=== PATIENT | female | born 1985 | race American Indian/Alaskan Native ===

== ENCOUNTER 2016-08-27 15:23 | Emergency (ER) | payer OTHER ==
[2016-08-27] MEDS ORDERED: NACL 0.9% 1000 ML 1,000 ML IV ONE (16:01)
[2016-08-27 16:19] LABS: Basophils % (Auto) 1.3 % (0.0-1.8); Eosinophils % (Auto) 6.5 % (0.0-4.3); Hematocrit 33.9 % (30.3-42.9); Hemoglobin 10.6 gm/dl (10.1-14.3); Mean Corpuscular HGB Conc 31 % (30-34); Platelet Count 267 K/mm3 (140-440); Red Blood Count 4.88 M/mm3 (3.65-5.03); White Blood Count 9.3 K/mm3 (4.5-11.0)
[2016-08-27 16:29] LABS: Mean Corpuscular Hemoglobin 22 pg (28-32); Mean Corpuscular Volume 70 fl (79-97)
[2016-08-27 16:32] LABS: INR 1.04 (0.87-1.13)
[2016-08-27 16:33] LABS: Partial Thromboplastin Time 30.5 Sec. (24.2-36.6)
[2016-08-27 16:39] LABS: Alanine Aminotransferase 15 units/L (7-56); Albumin 3.8 g/dL (3.9-5); Alkaline Phosphatase 65 units/L (35-129); Anion Gap 16 mmol/L; BUN/Creatinine Ratio 14.28; Blood Urea Nitrogen 10 mg/dL (7-17); Calcium 8.9 mg/dL (8.4-10.2); Carbon Dioxide 26 mmol/L (22-30); Chloride 100.1 mmol/L (98-107); Glucose 92 mg/dL (65-100); Potassium 4.8 mmol/L (3.6-5.0); Sodium 137 mmol/L (137-145); Total Protein 7.5 g/dL (6.3-8.2)
[2016-08-27 17:17] LABS: Bilirubin,Direct < 0.2 mg/dL (0-0.2)
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
[2016-08-27] MEDS ORDERED: NORCO 5/325 ONE (19:34)
[2016-08-27] MEDS ORDERED: NORCO 5/325 PO ONE ×2 (19:36→19:39)
[2016-08-27 19:39] VITALS: BP 164/101
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
== END 2016-08-27 20:00 | disposition home or self-care (01) ==
LOC: ED 15:23
DX: S13.9XXA Sprain of joints and ligaments of unspecified parts of neck, initial encounter (principal); S33.5XXA Sprain of ligaments of lumbar spine, initial encounter; J45.909 Unspecified asthma, uncomplicated; V89.2XXA Person injured in unspecified motor-vehicle accident, traffic, initial encounter; Y93.89 Activity, other specified; Y99.8 Other external cause status; Y92.89 Other specified places as the place of occurrence of the external cause
CPT/HCPCS: 36415; 71010; 72040; 72100; 80048; 80074; 85025; 85610; 85730; 86850; 86900; 86901; 96360; 96361; 99284; J7030

== ENCOUNTER 2017-11-24 16:14 | Emergency (ER) | payer MEDICAID, OTHER ==
--- NOTE | 2017-11-24 18:34 | Emergency Department Report ---
ED Shortness of Breath HPI - General Chief Complaint: Dyspnea/Respdistress Stated Complaint: DIFFICULTY BREATHING Time Seen by Provider: 11/24/17 18:33 Source: patient, EMS Mode of arrival: Stretcher Limitations: No Limitations - History of Present Illness Initial Comments: Patient ran out of her albuterol inhaler and her came to the ED c/o asthma attack with shortness of breath. MD Complaint: shortness of breath, cough, "asthma attack" -: Sudden Severity: moderate Pain Scale: 5 Consistency: constant Improves With: oxygen Known History Of: asthma Context: medication noncompliance Associated Symptoms: cough Treatments Prior to Arrival: none - Related Data Home Oxygen Therapy: No Previous Rx's Medication Instructions Recorded Last Taken Type Cyclobenzaprine HCl [Flexeril 5 MG 5 mg PO TID PRN #14 tab 08/27/16 Unknown Rx TAB] HYDROcodone/APAP 5-325 [Moody 1 each PO Q4HR PRN #14 tablet 08/27/16 Unknown Rx 5/325] ALBUTEROL Inhaler [ProAir HFA 2 puff IH QID PRN #1 inhalation 11/24/17 Unknown Rx Inhaler] Albuterol Sulfate [Albuterol 0.63% 0.63 mg IH Q6H PRN #60 ml 11/24/17 Unknown Rx NEBS] Amoxicillin/Potassium Clav 1 each PO BID #20 tablet 11/24/17 Unknown Rx [Augmentin 875-125 Tablet] predniSONE [Deltasone] 60 mg PO DAILY #12 tablet 11/24/17 Unknown Rx Allergies Allergy/AdvReac Type Severity Reaction Status Date / Time No Known Allergies Allergy Verified 08/12/15 15:21 ED Review of Systems ROS: Stated complaint: DIFFICULTY BREATHING Other details as noted in HPI Comment: All other systems reviewed and negative Constitutional: denies: chills, fever Eyes: denies: eye pain ENT: denies: ear pain, throat pain Respiratory: cough, shortness of breath, SOB at rest Cardiovascular: denies: chest pain, palpitations, dyspnea on exertion Endocrine: no symptoms reported Gastrointestinal: denies: abdominal pain, nausea, vomiting, diarrhea Genitourinary: denies: urgency, dysuria, frequency Musculoskeletal: denies: back pain Skin: denies: rash, lesions Neurological: denies: headache, weakness, numbness Psychiatric: denies: anxiety, depression Hematological/Lymphatic: denies: easy bleeding, easy bruising ED Past Medical Hx - Past Medical History Previous Medical History?: Yes Hx Asthma: Yes - Surgical History Past Surgical History?: Yes Additional Surgical History: x1; oophrectomy x1 - Social History Smoking Status: Never Smoker Substance Use Type: None - Medications Home Medications: Home Medications Medication Instructions Recorded Confirmed Last Taken Type Cyclobenzaprine HCl [Flexeril 5 MG 5 mg PO TID PRN #14 tab 08/27/16 Unknown Rx TAB] HYDROcodone/APAP 5-325 [Moody 1 each PO Q4HR PRN #14 tablet 08/27/16 Unknown Rx 5/325] ALBUTEROL Inhaler [ProAir HFA 2 puff IH QID PRN #1 inhalation 11/24/17 Unknown Rx Inhaler] Albuterol Sulfate [Albuterol 0.63% 0.63 mg IH Q6H PRN #60 ml 11/24/17 Unknown Rx NEBS] Amoxicillin/Potassium Clav 1 each PO BID #20 tablet 11/24/17 Unknown Rx [Augmentin 875-125 Tablet] predniSONE [Deltasone] 60 mg PO DAILY #12 tablet 11/24/17 Unknown Rx ED Physical Exam - General Limitations: No Limitations General appearance: alert, in distress - Head Head exam: Present: atraumatic, normocephalic, normal inspection - Eye Eye exam: Present: normal appearance, PERRL, EOMI Pupils: Present: normal accommodation - ENT ENT exam: Present: normal exam, normal orophraynx, mucous membranes moist - Neck Neck exam: Present: normal inspection, full ROM. Absent: tenderness - Respiratory Respiratory exam: Present: normal lung sounds bilaterally, respiratory distress , wheezes, rales, rhonchi. Absent: stridor - Cardiovascular Cardiovascular Exam: Present: normal rhythm, tachycardia, normal heart sounds - GI/Abdominal GI/Abdominal exam: Present: soft, normal bowel sounds. Absent: distended, tenderness, guarding, rebound - Extremities Exam Extremities exam: Present: normal inspection, full ROM, normal capillary refill. Absent: tenderness - Back Exam Back exam: Present: normal inspection, full ROM. Absent: tenderness, CVA tenderness (R), CVA tenderness (L) - Neurological Exam Neurological exam: Present: alert, oriented X3, CN II-XII intact - Psychiatric Psychiatric exam: Present: normal affect, normal mood - Skin Skin exam: Present: warm, dry, intact, normal color. Absent: rash ED Course Vital Signs 11/24/17 11/24/17 11/24/17 17:52 17:53 17:55 Temperature 98.4 F 98.4 F Pulse Rate 115 H 115 H Respiratory 25 H 25 H Rate Blood Pressure 141/93 Blood Pressure 141/93 141/93 [Left] O2 Sat by Pulse 98 97 97 Oximetry 11/24/17 11/24/17 11/24/17 18:00 18:15 18:30 Temperature Pulse Rate 115 H 113 H 114 H Respiratory 15 12 13 Rate Blood Pressure 138/96 143/76 145/93 Blood Pressure [Left] O2 Sat by Pulse 98 98 98 Oximetry 11/24/17 11/24/17 11/24/17 18:45 19:00 19:15 Temperature Pulse Rate 114 H 109 H 112 H Respiratory 16 16 19 Rate Blood Pressure 138/86 139/74 130/81 Blood Pressure [Left] O2 Sat by Pulse 98 98 98 Oximetry 11/24/17 11/24/17 11/24/17 19:30 20:00 20:39 Temperature Pulse Rate 117 H 121 H Respiratory 31 H 19 Rate Blood Pressure 145/93 137/62 137/62 Blood Pressure [Left] O2 Sat by Pulse 95 99 94 Oximetry 11/24/17 11/24/17 21:00 21:25 Temperature 98.2 F Pulse Rate 112 H 109 H Respiratory 18 20 Rate Blood Pressure 135/89 Blood Pressure 157/76 [Left] O2 Sat by Pulse 93 97 Oximetry - Reevaluation(s) Reevaluation #1: 11/24/17 20:52 Patient says she is feeling a lot better after receiving treatment in the emergency room and she would like to be discharged home. ED Medical Decision Making - Lab Data Result diagrams: 11/24/17 18:22 11/24/17 18:22 - EKG Data -: EKG Interpreted by Me EKG shows normal: sinus rhythm Rate: tachycardia (113) - EKG Data When compared to previous EKG there are: previous EKG unavailable Interpretation: nonspecific ST-T wave kelsea, other (J point elevation in the anterior leads. No STEMI.) - Radiology Data Radiology results: report reviewed, image reviewed - Medical Decision Making Acute asthma exacerbation. Acute bronchitis. Critical care attestation.: If time is entered above; I have spent that time in minutes in the direct care of this critically ill patient, excluding procedure time. ED Disposition Clinical Impression: Bronchitis Asthma exacerbation Qualifiers: Asthma severity: severe Asthma persistence: unspecified Qualified Code(s): J45.901 - Unspecified asthma with (acute) exacerbation Disposition: TO HOME OR SELFCARE Is pt being admited?: No Does the pt Need Aspirin: No Condition: Stable Instructions: Asthma (ED), Chronic Bronchitis (ED) Additional Instructions: Please follow up with your primary doctor or Dr Cortes on Monday morning. Return to the emergency room if her condition worsens. Prescriptions: ALBUTEROL Inhaler [ProAir HFA Inhaler] 2 puff IH QID PRN #1 inhalation PRN Reason: Shortness Of Breath Albuterol Sulfate [Albuterol 0.63% NEBS] 0.63 mg IH Q6H PRN #60 ml PRN Reason: Shortness Of Breath Amoxicillin/Potassium Clav [Augmentin 875-125 Tablet] 1 each PO BID #20 tablet predniSONE [Deltasone] 60 mg PO DAILY #12 tablet Referrals: PRIMARY CARE, [Primary Care Provider] - 3-5 Days Forms: Work/School Release Form(ED) Time of Disposition: 21:01
[2017-11-24] MEDS ORDERED: PROVENTIL IH ONE (18:45)
[2017-11-24] MEDS ORDERED: NACL 0.9% 1000 ML 1,000 ML IV ONE (18:45)
[2017-11-24] MEDS ORDERED: SOLU-Medrol IV ONE (18:46)
[2017-11-24 18:49] LABS: Basophils # (Auto) 0.1 K/mm3 (0.0-0.1); Eosinophils # (Auto) 0.5 K/mm3 (0.0-0.4); Eosinophils % (Auto) 4.8 % (0.0-4.3); Hematocrit 38.8 % (30.3-42.9); Hemoglobin 12.5 gm/dl (10.1-14.3); Lymphocytes # (Auto) 2.3 K/mm3 (1.2-5.4); Lymphocytes % (Auto) 20.3 % (13.4-35.0); Mean Corpuscular HGB Conc 32 % (30-34); Mean Corpuscular Volume 75 fl (79-97); Monocytes # (Auto) 0.6 K/mm3 (0.0-0.8); Monocytes % (Auto) 5.7 % (0.0-7.3); Platelet Count 232 K/mm3 (140-440); Red Cell Distribution Width 17.4 % (13.2-15.2)
[2017-11-24 18:54] LABS: Mean Corpuscular Hemoglobin 24 pg (28-32)
[2017-11-24 19:19] LABS: BUN/Creatinine Ratio 11; Blood Urea Nitrogen 8 mg/dL (7-17); Calcium 9.7 mg/dL (8.4-10.2)
[2017-11-24 19:20] LABS: Hemolysis Index 14
[2017-11-24 19:27] LABS: HCG Qualitative,Urine Negative (Negative)
[2017-11-24 19:38] LABS: Alanine Aminotransferase 13 units/L (7-56); Albumin 4.1 g/dL (3.9-5)
[2017-11-24 19:47] LABS: Bilirubin,Direct < 0.2 mg/dL (0-0.2)
[2017-11-24] MEDS ORDERED: LEVAQUIN PO ONE (20:47)
[2017-11-24] MEDS ORDERED: TYLENOL PO ONE (21:01)
--- NOTE | 2017-11-24 21:12 | XRay Report ---
FINAL REPORT PROCEDURE: XR CHEST ROUTINE 2V TECHNIQUE: PA and lateral chest radiographs were obtained. CPT 02002 HISTORY: Shortness of breath COMPARISON: No prior studies are available for comparison. FINDINGS: Heart: Normal. Mediastinum/Vessels: Normal. Lungs/Pleural space: Normal. Bony thorax: No acute osseous abnormality. Other: IMPRESSION: Normal examination.
[2017-11-24 21:26] VITALS: BP 135/89
== END 2017-11-24 21:28 | disposition home or self-care (01) ==
LOC: ED 16:14
DX: J45.901 Unspecified asthma with (acute) exacerbation (principal); Z90.79 Acquired absence of other genital organ(s)
CPT/HCPCS: 36415; 71046; 80048; 80074; 81025; 82803; 84484; 85025; 93005; 93010; 96374; 99285; J2930; J7030

== ENCOUNTER 2019-03-18 14:58 | Observation (INO) | payer MEDICAID, OTHER ==
--- NOTE | 2019-03-18 15:41 | Emergency Department Report ---
ED Neuro Deficit HPI - General Chief Complaint: Chest Pain Stated Complaint: RT SIDE NUMB/CHEST PAIN Time Seen by Provider: 03/18/19 15:33 Source: patient Mode of arrival: Wheelchair Limitations: No Limitations - History of Present Illness Initial Comments: Patient is 33 years old female with history of asthma. Patient presented to the ER by private vehicle. Patient is complaining of right upper extremity weakness followed by pain, headache and chest pain. Patient stated that symptoms started one hour ago. Patient went to [facility] ER and stated that they could not give a wait time so she decided to come to our hospital. The stroke pr otocol immediately initiated and patient moved to CT scan. Stroke telemetry neurology consulted. -: Sudden, hour(s) (one) Location: speech, right arm, right leg Presenting Symptoms: Present: Weak/Paralyzed One Side, Unable to Speak Clearly History of same: No Place: home Context: sudden onset - Related Data Home Medications: Previous Rx's Medication Instructions Recorded Last Taken Type Cyclobenzaprine HCl [Flexeril 5 MG 5 mg PO TID PRN #14 tab 08/27/16 Unknown Rx TAB] HYDROcodone/APAP 5-325 [[place] 1 each PO Q4HR PRN #14 tablet 08/27/16 Unknown Rx 5/325] ALBUTEROL Inhaler (OR & NICU) 2 puff IH QID PRN #1 inhalation 11/24/17 Unknown Rx [ProAir HFA Inhaler] Albuterol Sulfate [Albuterol 0.63% 0.63 mg IH Q6H PRN #60 ml 11/24/17 Unknown Rx NEBS] Amoxicillin/Potassium Clav 1 each PO BID #20 tablet 11/24/17 Unknown Rx [Augmentin 875-125 Tablet] predniSONE [Deltasone] 60 mg PO DAILY #12 tablet 11/24/17 Unknown Rx Allergies/Adverse Reactions: Allergies Allergy/AdvReac Type Severity Reaction Status Date / Time No Known Allergies Allergy Verified 08/12/15 15:21 ED Review of Systems ROS: Stated complaint: RT SIDE NUMB/CHEST PAIN Other details as noted in HPI Constitutional: denies: chills, fever Respiratory: denies: cough, orthopnea, shortness of breath, SOB with exertion, wheezing Cardiovascular: chest pain Gastrointestinal: denies: abdominal pain, nausea, vomiting Neurological: headache, weakness, numbness. denies: paresthesias, confusion ED Past Medical Hx - Past Medical History Previous Medical History?: Yes Hx Asthma: Yes - Surgical History Past Surgical History?: Yes Additional Surgical History: x1; oophrectomy x1 - Social History Smoking Status: Never Smoker Substance Use Type: None - Medications Home Medications: Home Medications Medication Instructions Recorded Confirmed Last Taken Type Cyclobenzaprine HCl [Flexeril 5 MG 5 mg PO TID PRN #14 tab 08/27/16 Unknown Rx TAB] HYDROcodone/APAP 5-325 [[place] 1 each PO Q4HR PRN #14 tablet 08/27/16 Unknown Rx 5/325] ALBUTEROL Inhaler (OR & NICU) 2 puff IH QID PRN #1 inhalation 11/24/17 Unknown Rx [ProAir HFA Inhaler] Albuterol Sulfate [Albuterol 0.63% 0.63 mg IH Q6H PRN #60 ml 11/24/17 Unknown Rx NEBS] Amoxicillin/Potassium Clav 1 each PO BID #20 tablet 11/24/17 Unknown Rx [Augmentin 875-125 Tablet] predniSONE [Deltasone] 60 mg PO DAILY #12 tablet 11/24/17 Unknown Rx ED Neuro Physical Exam - General Limitations: No Limitations General appearance: alert, in no apparent distress Suspected Stroke: Yes - Head Head exam: Present: atraumatic, normocephalic, normal inspection - Eye Eye exam: Present: normal appearance, PERRL - ENT ENT exam: Present: normal exam, normal orophraynx, mucous membranes moist - Neck Neck exam: Present: normal inspection, full ROM. Absent: tenderness, meningismus, lymphadenopathy, thyromegaly - Respiratory Respiratory exam: Present: normal lung sounds bilaterally - Cardiovascular Cardiovascular Exam: Present: regular rate, normal rhythm, normal heart sounds - GI/Abdominal GI/Abdominal exam: Present: soft, normal bowel sounds. Absent: distended, tenderness, guarding, rebound, rigid, mass, bruit, pulsatile mass, hernia - Extremities Exam Extremities exam: Present: normal inspection, full ROM - Back Exam Back exam: Present: normal inspection, full ROM. Absent: CVA tenderness (R) - Neurological Exam Neurological exam: Present: alert, oriented X3 - NIHSS Assessment Interval: Baseline 1a. Level of Consciousness: alert/keenly responsive 1b. LOC Questions: answers both correctly 1c. LOC Commands: performs tasks correctly 2. Best Gaze: normal 3. Visual: no visual loss 4. Facial Palsy: normal symmetrical movement 5b. Motor Arm Right: no drift 5a. Motor Arm Left: no drift 6a. Motor Leg Left: no drift 6b. Motor Leg Right: some gravity effort 7. Limb Ataxia: absent 8. Sensory: mild/moderate sensory loss 9. Best Language: no aphasia 10. Dysarthria: normal 11. Extinction/Inattention: no abnormality Total Score: 3 Stroke Severity: Minor Stroke - Skin Skin exam: Present: warm, intact, normal color ED Course Vital Signs 03/18/19 03/18/19 03/18/19 15:14 15:30 15:57 Temperature 97.8 F Pulse Rate 91 H 92 H Respiratory 18 26 H 26 H Rate Blood Pressure 156/85 O2 Sat by Pulse 98 98 98 Oximetry 03/18/19 03/18/19 03/18/19 15:58 16:00 16:33 Temperature 97.9 F Pulse Rate 85 103 H Respiratory 13 Rate Blood Pressure 148/89 133/84 O2 Sat by Pulse 97 Oximetry 03/18/19 03/18/19 17:01 17:30 Temperature Pulse Rate 89 84 Respiratory 18 19 Rate Blood Pressure 148/87 157/79 O2 Sat by Pulse 96 97 Oximetry - Lab Data Result diagrams: 03/18/19 15:47 03/18/19 15:47 Lab Results 03/18/19 03/18/19 03/18/19 Range/Units 15:12 15:42 15:47 WBC (4.5-11.0) K/mm3 RBC (3.65-5.03) M/mm3 Hgb (10.1-14.3) gm/dl Hct (30.3-42.9) % MCV (79-97) fl MCH (28-32) pg MCHC (30-34) % RDW (13.2-15.2) % Plt Count (140-440) K/mm3 Lymph % (Auto) (13.4-35.0) % [place] % (Auto) (0.0-7.3) % Eos % (Auto) (0.0-4.3) % Baso % (Auto) (0.0-1.8) % Lymph # (1.2-5.4) K/mm3 [place] # (0.0-0.8) K/mm3 Eos # (0.0-0.4) K/mm3 Baso # (0.0-0.1) K/mm3 Seg Neutrophils % (40.0-70.0) % Seg Neutrophils # (1.8-7.7) K/mm3 PT (12.2-14.9) Sec. INR (0.87-1.13) APTT (24.2-36.6) Sec. Thrombin Time (15.1-19.6) Sec. Sodium (137-145) mmol/L Potassium (3.6-5.0) mmol/L Chloride (98-107) mmol/L Carbon Dioxide (22-30) mmol/L Anion Gap mmol/L BUN (7-17) mg/dL Creatinine (0.7-1.2) mg/dL Estimated GFR ml/min BUN/Creatinine Ratio % Glucose (65-100) mg/dL POC Glucose 109 H 108 H (70-105) Calcium (8.4-10.2) mg/dL Troponin T (0.00-0.029) ng/mL HCG, Qual Negative (Negative) 03/18/19 03/18/19 03/18/19 Range/Units 15:47 15:47 15:47 WBC 9.8 (4.5-11.0) K/mm3 RBC 5.08 H (3.65-5.03) M/mm3 Hgb 11.8 (10.1-14.3) gm/dl Hct 37.4 (30.3-42.9) % MCV 74 L (79-97) fl MCH 23 L (28-32) pg MCHC 32 (30-34) % RDW 17.9 H (13.2-15.2) % Plt Count 273 (140-440) K/mm3 Lymph % (Auto) 39.5 H (13.4-35.0) % [place] % (Auto) 6.6 (0.0-7.3) % Eos % (Auto) 5.8 H (0.0-4.3) % Baso % (Auto) 1.4 (0.0-1.8) % Lymph # 3.9 (1.2-5.4) K/mm3 [place] # 0.6 (0.0-0.8) K/mm3 Eos # 0.6 H (0.0-0.4) K/mm3 Baso # 0.1 (0.0-0.1) K/mm3 Seg Neutrophils % 46.7 (40.0-70.0) % Seg Neutrophils # 4.6 (1.8-7.7) K/mm3 PT 12.9 (12.2-14.9) Sec. INR 0.98 (0.87-1.13) APTT 29.2 (24.2-36.6) Sec. Thrombin Time (15.1-19.6) Sec. Sodium 137 (137-145) mmol/L Potassium 4.0 (3.6-5.0) mmol/L Chloride 102.1 (98-107) mmol/L Carbon Dioxide 24 (22-30) mmol/L Anion Gap 15 mmol/L BUN 10 (7-17) mg/dL Creatinine 0.6 L (0.7-1.2) mg/dL Estimated GFR > 60 ml/min BUN/Creatinine Ratio 17 % Glucose 105 H (65-100) mg/dL POC Glucose (70-105) Calcium 9.2 (8.4-10.2) mg/dL Troponin T < 0.010 (0.00-0.029) ng/mL HCG, Qual (Negative) 03/18/19 Range/Units 15:47 WBC (4.5-11.0) K/mm3 RBC (3.65-5.03) M/mm3 Hgb (10.1-14.3) gm/dl Hct (30.3-42.9) % MCV (79-97) fl MCH (28-32) pg MCHC (30-34) % RDW (13.2-15.2) % Plt Count (140-440) K/mm3 Lymph % (Auto) (13.4-35.0) % [place] % (Auto) (0.0-7.3) % Eos % (Auto) (0.0-4.3) % Baso % (Auto) (0.0-1.8) % Lymph # (1.2-5.4) K/mm3 [place] # (0.0-0.8) K/mm3 Eos # (0.0-0.4) K/mm3 Baso # (0.0-0.1) K/mm3 Seg Neutrophils % (40.0-70.0) % Seg Neutrophils # (1.8-7.7) K/mm3 PT (12.2-14.9) Sec. INR (0.87-1.13) APTT (24.2-36.6) Sec. Thrombin Time 16.2 (15.1-19.6) Sec. Sodium (137-145) mmol/L Potassium (3.6-5.0) mmol/L Chloride (98-107) mmol/L Carbon Dioxide (22-30) mmol/L Anion Gap mmol/L BUN (7-17) mg/dL Creatinine (0.7-1.2) mg/dL Estimated GFR ml/min BUN/Creatinine Ratio % Glucose (65-100) mg/dL POC Glucose (70-105) Calcium (8.4-10.2) mg/dL Troponin T (0.00-0.029) ng/mL HCG, Qual (Negative) - EKG Data -: EKG Interpreted by Md EKG shows normal: sinus rhythm Rate: normal - Radiology Data Radiology results: report reviewed - Medical Decision Making Patient is 33 years old female with history of asthma. Patient presented to the ER by private vehicle. Patient is complaining of right upper extremity weakness followed by pain, headache and chest pain. Patient stated that symptoms started one hour ago. Patient went to [facility] ER and stated that they could not give a wait time so she decided to come to our hospital. The stroke protocol immediately initiated and patient moved to CT scan. Stroke telemetry neurology consulted. Patient examined by Dr. Chaudhary. For further information please refer to Dr. Chaudhary report. Patient declined TPA. Patient's symptoms significantly improved in the emergency room. Patient walked to the bathroom and came back by herself with minimal assistance. CT brain is negative for acute finding. CTA chest showed no evidence of aortic dissection or any other abnormalities. CTA brain and neck is unremarkable. I discussed the patient with Dr. Rabago, he agreed to admit the patient to medical service for further management. Critical Care Time: Yes Critical care time in (mins) excluding proc time.: 30 Critical care attestation.: If time is entered above; I have spent that time in minutes in the direct care of this critically ill patient, excluding procedure time. ED Disposition Clinical Impression: CVA (cerebral vascular accident), Chest pain Disposition: DC-[id number] OP ADMIT IP TO THIS HOSP Is pt being admited?: Yes Condition: Stable Instructions: Chest Pain (ED)
[2019-03-18 15:56] LABS: Basophils # (Auto) 0.1 K/mm3 (0.0-0.1); Basophils % (Auto) 1.4 % (0.0-1.8); Eosinophils # (Auto) 0.6 K/mm3 (0.0-0.4); Eosinophils % (Auto) 5.8 % (0.0-4.3); Hematocrit 37.4 % (30.3-42.9); Hemoglobin 11.8 gm/dl (10.1-14.3); Lymphocytes # (Auto) 3.9 K/mm3 (1.2-5.4); Lymphocytes % (Auto) 39.5 % (13.4-35.0); Mean Corpuscular HGB Conc 32 % (30-34); Mean Corpuscular Volume 74 fl (79-97); Monocytes # (Auto) 0.6 K/mm3 (0.0-0.8); Monocytes % (Auto) 6.6 % (0.0-7.3); Platelet Count 273 K/mm3 (140-440); Red Blood Count 5.08 M/mm3 (3.65-5.03); Red Cell Distribution Width 17.9 % (13.2-15.2)
--- NOTE | 2019-03-18 15:57 | Cat Scan Report ---
CT HEAD WITHOUT CONTRAST INDICATION / CLINICAL INFORMATION: neuro deficits <6hrs or sx present upon awakening. Stroke TECHNIQUE: Axial imaging performed from the skull apex through the skull base without the use of cont rast. Sagittal and coronal reformatted images. All CT scans at this location are performed using CT dose reduction for ALARA by means of automated exposure control. COMPARISON: None available. FINDINGS: CEREBRAL PARENCHYMA: No significant abnormality. No acute territorial infarct. HEMORRHAGE: None. EXTRA-AXIAL SPACES: Normal in size and morphology for the patient's age. VENTRICULAR SYSTEM: Normal in size and morphology for the patient's age. MIDLINE SHIFT OR HERNIATION: None. CEREBELLUM / BRAINSTEM: No significant abnormality. CALVARIUM: No significant abnormality. ORBITS: Normal as visualized. PARANASAL SINUSES / MASTOID AIR CELLS: Normal as visualized. SOFT TISSUES of HEAD: No significant abnormality. ADDITIONAL FINDINGS: None. IMPRESSION: No acute intracranial abnormality. These findings were discussed with Dr. Alfredo in the emergency department at 1551 hours EST Signer Name: Cj Calvillo Jr, MD Signed: 03/18/2019 3:52 PM Workstation Name: [id number]
--- NOTE | 2019-03-18 15:59 | Consultation ---
History of Present Illness History of present illness: [facility] Date of Service: 03/18/2019 15:35:40 Impression: RO Acute Ischemic Stroke chest pain - r/o dissection Comments: 1. Cardioembolic stroke 2. Small vessel disease/lacune 3. Thromboembolic, [id number] mechanism 4. Hypercoagulable state-related infarct 5. Thrombotic mechanism, large artery disease 6. Transient ischemic attack Metrics: Last Known Well: 03/18/2019 12:00:00 [employer] Notification Time: 03/18/2019 15:34:43 Arrival Time: 03/18/2019 14:58:00 Stamp Time: 03/18/2019 15:35:40 Time First Login Attempt: 03/18/2019 15:40:39 Video Start Time: 03/18/2019 15:40:39 Symptoms: chest pain NIHSS Start Assessment Time: 03/18/2019 15:42:28 Patient is not a candidate for tPA. Patient was not deemed candidate for tPA thrombolytics because of IV TPA declined by the patient and her at bedside. Video End Time: 03/18/2019 15:55:03 CT head was reviewed. Advanced imaging may be ordered by ED physician if ok by radiology after CTA chest ER Physician notified of the decision on thrombolytics management on 03/18/2019 15:52:25 Our recommendations are outlined below. Recommendations: Activate Stroke Protocol Admission/Order Set Stroke/Telemetry Floor Neuro Checks Bedside Swallow Eval DVT Prophylaxis IV Fluids, Normal Saline Head of Bed Below 30 Degrees Euglycemia and Avoid Hyperthermia (PRN Acetaminophen) Hold Antithrombotics for Now Lipid Panel to Be Obtained, if Not Done in the Last Three Months Therapies: Physical Therapy, Occupational Therapy, Speech Therapy Assessment When Applicable Dysphaghia Screen: Swallow Evaluation, Bedside NPO Until Swallow Evaluation Disposition: Follow up with Teleneurology Follow up Sign Out: Discussed with Emergency Department Provider History of Present Illness: Patient is a 33 year old Female. Patient was brought by private transportation with symptoms of chest pain 33 y/o woman with h/o HTN who presents to the ED with chest pain and right sided numbness. Emergent telestroke consult requested. CT head reviewed and case discussed with ED staff. at bedside. All questions answered. I discussed the risk, benefits and alternatives to IV TPA and the patient's and patient declined IV TPA. Patient would need CTA of her chest to r/o dissection before IV TPA. All questions answered. Decision regarding IV TPA occurred with ED attending at the bedside. ED attending to send the patient back for CTA of her chest and may add on neuroimaging. CT head was reviewed. Examination: BP(156/85), Blood Glucose(109) 1A: Level of Consciousness - Alert; keenly responsive + 0 1B: Ask Month and Age - Both Questions Right + 0 1C: Blink Eyes & Squeeze Hands - Performs Both Tasks + 0 2: Test Horizontal Extraocular Movements - Normal + 0 3: Test Visual Noriega - No Visual Loss + 0 4: Test Facial Palsy (Use Grimace if Obtunded) - Normal symmetry + 0 5A: Test Left Arm Motor Drift - No Drift for 10 Seconds + 0 5B: Test Right Arm Motor Drift - No Drift for 10 Seconds + 0 6A: Test Left Leg Motor Drift - No Drift for 5 Seconds + 0 6B: Test Right Leg Motor Drift - Some Effort Against [place] + 2 7: Test Limb Ataxia (FNF/Heel-Carpenter) - No Ataxia + 0 8: Test Sensation - Mild-Moderate Loss: Less Sharp/More Dull + 1 9: Test Language/Aphasia - Normal; No aphasia + 0 10: Test Dysarthria - Mild-Moderate Dysarthria: Slurring but can be understood + 1 11: Test Extinction/Inattention - No abnormality + 0 NIHSS Score: 4 Patient was informed the Neurology Consult would happen via TeleHealth consult by way of interactive audio and video telecommunications and consented to receiving care in this manner. Due to the immediate potential for life-threatening deterioration due to underlying acute neurologic illness, I spent 15 minutes providing critical care. This time includes time for face to face visit via telemedicine, review of medical records, imaging studies and discussion of findings with providers, the patient and/or family. Dr Paxton Chaudhary [facility] Case [id number] Medications and Allergies Allergies Allergy/AdvReac Type Severity Reaction Status Date / Time No Known Allergies Allergy Verified 08/12/15 15:21 Home Medications Medication Instructions Recorded Confirmed Last Taken Type Cyclobenzaprine HCl [Flexeril 5 MG 5 mg PO TID PRN #14 tab 08/27/16 Unknown Rx TAB] HYDROcodone/APAP 5-325 [[place] 1 each PO Q4HR PRN #14 tablet 08/27/16 Unknown Rx 5/325] ALBUTEROL Inhaler (OR & NICU) 2 puff IH QID PRN #1 inhalation 11/24/17 Unknown Rx [ProAir HFA Inhaler] Albuterol Sulfate [Albuterol 0.63% 0.63 mg IH Q6H PRN #60 ml 11/24/17 Unknown Rx NEBS] Amoxicillin/Potassium Clav 1 each PO BID #20 tablet 11/24/17 Unknown Rx [Augmentin 875-125 Tablet] predniSONE [Deltasone] 60 mg PO DAILY #12 tablet 11/24/17 Unknown Rx Physical Examination - Vital Signs Vital Signs: Vital Signs Temp Pulse Resp BP Pulse Ox 97.8 F 91 H 18 156/85 98 03/18/19 15:14 03/18/19 15:14 03/18/19 15:14 03/18/19 15:14 03/18/19 15:14 Results - Laboratory Findings CBC and BMP: 03/18/19 15:47 Abnormal Lab Findings: Abnormal Labs 03/18/19 03/18/19 03/18/19 15:12 15:42 15:47 Eos % (Auto) 5.8 H Eos # 0.6 H POC Glucose 109 H 108 H
[2019-03-18 16:10] LABS: BUN/Creatinine Ratio 17; Blood Urea Nitrogen 10 mg/dL (7-17); Calcium 9.2 mg/dL (8.4-10.2); Hemolysis Index 4
[2019-03-18 16:25] LABS: INR 0.98 (0.87-1.13)
[2019-03-18 16:26] LABS: Partial Thromboplastin Time 29.2 Sec. (24.2-36.6)
--- NOTE | 2019-03-18 18:43 | Cat Scan Report ---
CT angio chest INDICATION / CLINICAL INFORMATION: MAIN: CHEST PAIN r/o dissection 70ML OMNI 350. TECHNIQUE: Axial CT images were obtained after injection of Omnipaque 350, 70 cc IV contrast using CTA protocol. 3 plane MIP / 3D reconstructions were produced. All CT scans at this location are performed using CT dose reduction for ALARA by means of automated exposure control. COMPARISON: None available. FINDINGS: Negative for lung mass, infiltrate or pleural fluid. No mediastinal mass or adenopathy. Imaging of th e upper abdomen is unremarkable. Negative for aneurysm, dissection or pulmonary embolus. IMPRESSION: No pulmonary embolus, dissection or pneumonia. Signer Name: Adi Brown MD Signed: 03/18/2019 6:39 PM Workstation Name: [id number]
--- NOTE | 2019-03-18 19:07 | Cat Scan Report ---
CTA head with and without IV contrast. CLINICAL HISTORY: Cerebrovascular accident. Technique: Multiple contiguous postcontrast CT images of the head were obtained at 0.63 mm intervals. 3 plane MIP reconstructions were obtained. Precontrast localizing images were also performed. CT scan s at this location are performed using the CT dose reduction for [place]AP[place]ap[place] by means of automated exposure control. FINDINGS: There is relative small caliber of the intracranial vessels diffusely which appears to be d evelopmental. However, there is no significant focal stenosis involving the distal internal carotid a rteries or vertebrobasilar system by NASCET criteria. The cerebral arteries and proximal branches als o demonstrate appropriate caliber without significant narrowing. There is no clear CTA evidence of intracranial aneurysm. The dural venous sinuses opacify with contra st. IMPRESSION: There is no CTA evidence of significant stenosis involving intracranial vessels. The study was initially incomplete and the technologist was contacted immediately. After an interval, the study was resubmitted and dictated on an emergent basis at 6:01 PM [place] standard time. Signer Name: Reagan Stein MD Signed: 03/18/2019 7:02 PM Workstation Name: [id number]
--- NOTE | 2019-03-18 19:11 | Cat Scan Report ---
CTA neck with and without contrast CLINICAL HISTORY: Cerebrovascular accident. Technique: Multiple contiguous postcontrast axial CT images of the neck were obtained at 0.63 mm inte rvals. 3 plane MIP reconstructions were produced. Precontrast localizing images were also performed. All CT scans at this location are performed using the CT dose reduction for ALARA by means of automat ed exposure control. FINDINGS: No previous exams available for comparison. The beam hardening from the dense venous contra st and body habitus degrade the image quality, particularly in the region of the arch vessels at. How ever, there is no significant stenosis involving the visualized carotid or arteries by NASCET criteri a. The carotid bifurcations are widely patent to. The visualized vessel valadez demonstrate fairly smoo th contour without CT evidence of dissection. The vertebral arteries also appear to demonstrate appropriate caliber without significant focal narro wing. There is mild relative hypoplasia of the right vertebral artery. There is developmental common origin of the brachiocephalic and left common carotid arteries. There is no clear evidence of signifi cant stenosis involving the arch vessels. IMPRESSION: There is no CT evidence of significant stenosis involving the visualized carotid or vertebral arterie s.. The initial study was incomplete and the technologist was contacted immediately. After the study was completed and resubmitted abdomen interval, the exam was dictated on an emergent basis at 6:06 PM [place] tra standard time. Signer Name: Reagan Stein MD Signed: 03/18/2019 7:07 PM Workstation Name: [id number]
[2019-03-18] MEDS ORDERED: ONDANSETRON 4 MG/2 ML INJ IV PRN (22:50)
[2019-03-18] MEDS ORDERED: oxyCODONE /ACETAMINOPHEN 5-325MG TAB PO PRN (22:50)
[2019-03-18] MEDS ORDERED: ACETAMINOPHEN 325 MG TAB PO PRN (22:50)
[2019-03-18] MEDS ORDERED: HYDROmorphone 1 MG/1 ML INJ IV PRN (22:50)
--- NOTE | 2019-03-18 22:50 | History and Physical Report ---
History of Present Illness Date of examination: 03/18/19 Date of admission: 03/18/19 19:37 Chief complaint: Rt sided weakness for few hours-Resolving History of present illness: 33 years old female with history of asthma presented to the ER by private vehicle. Patient is complaining of right upper extremity weakness followed by pain, headache and chest pain. Patient stated that symptoms started one hour ago. Patient went to [facility] ER and stated that they could not give a wait time so she decided to come to our hospital. The stroke protocol immed iately initiated and patient moved to CT scan. Stroke telemetry neurology consulted.Rt sided weakness has resolved by the time of my examination.Patient is morbidly obese. Past Medical History Previous Medical History?: Yes Asthma: Yes Surgical History Past Surgical History?: Yes Additional Surgical History: x1; oophrectomy x1 Social History Smoking Status: Never Smoker Substance Use Type: None Family History Htn Medications Home Medications: Home Medications Medication Instructions Recorded Confirmed Last Taken Type Cyclobenzaprine HCl [Flexeril 5 MG 5 mg PO TID PRN #14 tab 08/27/16 Unknown Rx TAB] HYDROcodone/APAP 5-325 [[place] 1 each PO Q4HR PRN #14 tablet 08/27/16 Unknown Rx 5/325] ALBUTEROL Inhaler (OR & NICU) 2 puff IH QID PRN #1 inhalation 11/24/17 Unknown Rx [ProAir HFA Inhaler] Albuterol Sulfate [Albuterol 0.63% 0.63 mg IH Q6H PRN #60 ml 11/24/17 Unknown Rx NEBS] Amoxicillin/Potassium Clav 1 each PO BID #20 tablet 11/24/17 Unknown Rx [Augmentin 875-125 Tablet] predniSONE [Deltasone] 60 mg PO DAILY #12 tablet 11/24/17 Unknown Rx Review of Systems ROS: Stated complaint: RT SIDE NUMB/CHEST PAIN Other details as noted in HPI Constitutional: denies: chills, fever Respiratory: denies: cough, orthopnea, shortness of breath, SOB with exertion, wheezing Cardiovascular: chest pain Gastrointestinal: denies: abdominal pain, nausea, vomiting Neurological: headache, weakness, numbness. denies: paresthesias, confusion Medications and Allergies Allergies Allergy/AdvReac Type Severity Reaction Status Date / Time No Known Allergies Allergy Verified 08/12/15 15:21 Home Medications Medication Instructions Recorded Confirmed Last Taken Type No Known Home Medications [No 03/18/19 03/18/19 Unknown History Reported Home Medications] Exam - Constitutional Vitals: Temp Pulse Resp BP Pulse Ox 97.9 F 84 16 144/72 96 03/18/19 15:58 03/18/19 20:23 03/18/19 20:23 03/18/19 20:23 03/18/19 20:23 General appearance: Present: no acute distress, well-nourished - EENT Eyes: Present: PERRL ENT: hearing intact, clear oral mucosa - Neck Neck: Present: supple, normal ROM - Respiratory Respiratory effort: normal Respiratory: bilateral: CTA - Cardiovascular Heart rate: 78 Rhythm: regular Heart Sounds: Present: S1 & S2. Absent: rub, click - Extremities Extremities: no ischemia, pulses intact, pulses symmetrical, No edema Peripheral Pulses: within normal limits - Abdominal General gastrointestinal: Present: soft, non-tender, non-distended, normal bowel sounds Female genitourinary: Present: normal - Rectal Rectal Exam: deferred - Integumentary Integumentary: Present: clear, warm, dry - Musculoskeletal Musculoskeletal: strength equal bilaterally (Power normal) - Psychiatric Psychiatric: appropriate mood/affect, intact judgment & insight - Neurologic Neurologic: CNII-XII intact, moves all extremities - Allied Health Allied health notes reviewed: nursing, case management Results - Labs CBC & Chem 7: 03/19/19 05:24 03/19/19 05:24 Labs: Laboratory Last Values WBC 9.8 K/mm3 (4.5-11.0) 03/18/19 15:47 RBC 5.08 M/mm3 (3.65-5.03) H 03/18/19 15:47 Hgb 11.8 gm/dl (10.1-14.3) 03/18/19 15:47 Hct 37.4 % (30.3-42.9) 03/18/19 15:47 MCV 74 fl (79-97) L 03/18/19 15:47 MCH 23 pg (28-32) L 03/18/19 15:47 MCHC 32 % (30-34) 03/18/19 15:47 RDW 17.9 % (13.2-15.2) H 03/18/19 15:47 Plt Count 273 K/mm3 (140-440) 03/18/19 15:47 Lymph % (Auto) 39.5 % (13.4-35.0) H 03/18/19 15:47 [place] % (Auto) 6.6 % (0.0-7.3) 03/18/19 15:47 Eos % (Auto) 5.8 % (0.0-4.3) H 03/18/19 15:47 Baso % (Auto) 1.4 % (0.0-1.8) 03/18/19 15:47 Lymph # 3.9 K/mm3 (1.2-5.4) 03/18/19 15:47 [place] # 0.6 K/mm3 (0.0-0.8) 03/18/19 15:47 Eos # 0.6 K/mm3 (0.0-0.4) H 03/18/19 15:47 Baso # 0.1 K/mm3 (0.0-0.1) 03/18/19 15:47 Seg Neutrophils % 46.7 % (40.0-70.0) 03/18/19 15:47 Seg Neutrophils # 4.6 K/mm3 (1.8-7.7) 03/18/19 15:47 PT 12.9 Sec. (12.2-14.9) 03/18/19 15:47 INR 0.98 (0.87-1.13) 03/18/19 15:47 APTT 29.2 Sec. (24.2-36.6) 03/18/19 15:47 Thrombin Time 16.2 Sec. (15.1-19.6) 03/18/19 15:47 Sodium 137 mmol/L (137-145) 03/18/19 15:47 Potassium 4.0 mmol/L (3.6-5.0) 03/18/19 15:47 Chloride 102.1 mmol/L (98-107) 03/18/19 15:47 Carbon Dioxide 24 mmol/L (22-30) 03/18/19 15:47 Anion Gap 15 mmol/L 03/18/19 15:47 BUN 10 mg/dL (7-17) 03/18/19 15:47 Creatinine 0.6 mg/dL (0.7-1.2) L 03/18/19 15:47 Estimated GFR > 60 ml/min 03/18/19 15:47 BUN/Creatinine Ratio 17 % 03/18/19 15:47 Glucose 105 mg/dL (65-100) H 03/18/19 15:47 POC Glucose 108 (70-105) H 03/18/19 15:42 Calcium 9.2 mg/dL (8.4-10.2) 03/18/19 15:47 Troponin T < 0.010 ng/mL (0.00-0.029) 03/18/19 15:47 HCG, Qual Negative (Negative) 03/18/19 15:47 Short CBC 03/18/19 03/19/19 Range/Units 15:47 05:24 WBC 9.8 7.1 (4.5-11.0) K/mm3 Hgb 11.8 11.2 (10.1-14.3) gm/dl Hct 37.4 35.2 (30.3-42.9) % Plt Count 273 240 (140-440) K/mm3 BMP 03/18/19 03/19/19 15:47 05:24 Sodium 137 137 Potassium 4.0 4.3 Chloride 102.1 99.1 Carbon Dioxide 24 25 BUN 10 10 Creatinine 0.6 L 0.6 L Glucose 105 H 114 H Calcium 9.2 8.9 Cardiac Enzymes 03/18/19 Range/Units 15:47 Troponin T < 0.010 (0.00-0.029) ng/mL Liver Function 03/19/19 Range/Units 05:24 Total Bilirubin 0.20 (0.1-1.2) mg/dL AST 17 (5-40) units/L ALT < 5 L (7-56) units/L Alkaline Phosphatase 75 (35-129) units/L Albumin 3.5 L (3.9-5) g/dL - Imaging and Cardiology EKG: report reviewed CT Scan - head: report reviewed (NAF) Assessment and Plan Advance Directives: Yes (Full code) VTE prophylaxis?: Chemical Plan of care discussed with patient/family: Yes - Patient Problems (1) TIA (transient ischemic attack) Current Visit: Yes Status: Acute Plan to address problem: TIA w/u MR brain and CDS pending Had Neck Head and Chest CTA which are normal Neuro consult requested (2) Asthma Current Visit: Yes Status: Inactive Qualifiers: Asthma severity: mild Plan to address problem: Bronchodilators prn (3) Morbid obesity Current Visit: Yes Status: Chronic Plan to address problem: Counselled BMI 49.5 Needs weight loss and Bariatric surgery appointment as outpatient (4) DVT prophylaxis Current Visit: Yes Status: Acute Plan to address problem: On Heparin and GI prophlaxis
[2019-03-18] MEDS ORDERED: SODIUM CHLORIDE 0.9% 1000 ML 1,000 ML IV SCH (23:00)
[2019-03-19 04:46] VITALS: BP 143/84
[2019-03-19 06:18] LABS: Basophils % (Auto) 0.6 % (0.0-1.8); Eosinophils # (Auto) 0.5 K/mm3 (0.0-0.4); Eosinophils % (Auto) 7.2 % (0.0-4.3); Hematocrit 35.2 % (30.3-42.9); Hemoglobin 11.2 gm/dl (10.1-14.3); Lymphocytes # (Auto) 3.2 K/mm3 (1.2-5.4); Lymphocytes % (Auto) 44.8 % (13.4-35.0); Mean Corpuscular HGB Conc 32 % (30-34); Mean Corpuscular Volume 73 fl (79-97); Monocytes # (Auto) 0.5 K/mm3 (0.0-0.8); Monocytes % (Auto) 7.3 % (0.0-7.3); Platelet Count 240 K/mm3 (140-440); Red Blood Count 4.86 M/mm3 (3.65-5.03); Red Cell Distribution Width 18.2 % (13.2-15.2)
[2019-03-19 06:33] LABS: Albumin 3.5 g/dL (3.9-5); BUN/Creatinine Ratio 17; Blood Urea Nitrogen 10 mg/dL (7-17); Calcium 8.9 mg/dL (8.4-10.2); Chol/HDL Ratio 3.86 %; HDL Cholesterol 37 mg/dL (40-59); Hemolysis Index 1; LDL Cholesterol,Direct 82 mg/dL (50-130)
[2019-03-19 06:35] LABS: Alanine Aminotransferase < 5 units/L (7-56)
[2019-03-19] MEDS ORDERED: ACETAMINOPHEN 325 MG TAB PO PRN (07:15)
[2019-03-19] MEDS ORDERED: ONDANSETRON 4 MG/2 ML INJ IV PRN (08:00)
[2019-03-19 08:11] LABS: % Iron Saturation 8.11 %
[2019-03-19] MEDS ORDERED: HEPARIN 5,000 UNIT/1 ML VIAL SUB-Q SCH (10:00)
--- NOTE | 2019-03-19 13:13 | Magnetic Resonance Report ---
MRI BRAIN WITHOUT CONTRAST INDICATION / CLINICAL INFORMATION: stroke. Patient symptoms include headaches and right upper extremity weakness. TECHNIQUE: Multiplanar, multisequence MR images of the brain were obtained. COMPARISON: Head CT on 03/18/2019. No prior brain MRI. FINDINGS: BRAIN / INTRACRANIAL CONTENTS: No acute ischemia, acute hemorrhage, mass effect, midline shift, or hy drocephalus. No chronic infarct or significant atrophy. No significant demyelinating changes. There is mild hyperostosis frontalis. CRANIOCERVICAL JUNCTION: No significant abnormality. VASCULAR FLOW-VOIDS: No significant abnormality. ORBITS: No significant abnormality of visualized orbits. SINUSES / MASTOIDS: No significant abnormality of visualized sinuses and mastoid air cells. ADDITIONAL FINDINGS: None. IMPRESSION: 1. No evidence of acute infarct or other acute intracranial abnormality. No intracranial findings to explain right upper extremity weakness. Signer Name: Mario Rich MD Signed: 03/19/2019 1:09 PM Workstation Name: [id number]
--- NOTE | 2019-03-19 13:28 | Vascular Lab Report ---
BILATERAL CAROTID DOPPLER ULTRASOUND INDICATION : stroke, right-sided weakness TECHNIQUE: Grayscale and color Doppler imaging performed through the neck. COMPARISON: CTA neck performed yesterday FINDINGS: Right: There is no significant atherosclerotic disease. Peak systolic velocity in the CCA is 114 cm /s with end-diastolic velocity of 7 cm/s. Peak systolic velocity in the proximal ICA is 108 cm/s with end-diastolic velocity of 39 cm/s. ICA to CCA ratio is less than 2. There is antegrade flow in the ECA and the vertebral artery. Left: There is no significant atherosclerotic disease. Peak systolic velocity in the CCA is 102 cm/s with end-diastolic velocity of 13 cm/s. Peak systolic velocity in the proximal ICA is 118 cm/s with e nd-diastolic velocity of 58 cm/s. ICA to CCA ratio is less than 2. There is antegrade flow in the EC A and the vertebral artery. IMPRESSION: No hemodynamically significant stenosis by NASCET criteria. There is less than 50% lumina l narrowing throughout both carotid systems. Signer Name: Cj Calvillo Jr, MD Signed: 03/19/2019 1:23 PM Workstation Name: [id number]
--- NOTE | 2019-03-19 15:35 | Discharge Summary ---
Providers - Providers Date of Admission: 03/18/19 19:37 Date of discharge: 03/19/19 Attending physician: YARELI GONZALEZ 03/18/19 22:50 Consult to Physician [CONS] Routine Comment: Consulting Provider: LYNN BENAVIDES Physician Instructions: Reason For Exam: TIA 03/18/19 23:00 Occupational Therapy Evaluate and Treat [CONS] Routine Comment: Reason For Exam: Neuro deficits Physical Therapy Evaluation and Treat [CONS] Routine Comment: Reason For Exam: Neuro deficits 03/19/19 14:57 Consult to Dietitian/Nutrition [CONS] Routine Physician Instructions: Reason For Exam: New onset Diabees Reason for Consult: Nutrition Recommendations Reason for Consult: Diet education Primary care physician: WHITLEY ARTIS MD Hospitalization Condition: Stable Hospital course: Discharge diagnosis; / Right upper extremity pain ans weakness - ruled out TIA (transient ischemic attack) - likley from cervical rediculopathy - all stroke workup was negative /Atypical Chest pain, musculoskeletal, resolved / Asthma Bronchodilators prn / Morbid obesity Counselled BMI 49.5, Needs weight loss and Bariatric surgery appointment as outpatient /Prediabetic, a1c 6.3 - recommended diet and exercise regimen Disposition: DC-01 TO HOME OR SELFCARE Time spent for discharge: 34 minutes Core Measure Documentation - Palliative Care Palliative Care/ Comfort Measures: Not Applicable - Core Measures Any of the following diagnoses?: none Exam - Constitutional Vitals: Temp Pulse Resp BP Pulse Ox 98.4 F 93 H 22 143/84 98 03/19/19 01:24 03/19/19 08:50 03/19/19 08:39 03/19/19 04:30 03/19/19 08:39 General appearance: Present: no acute distress, well-nourished - EENT Eyes: Present: PERRL ENT: hearing intact, clear oral mucosa - Neck Neck: Present: supple, normal ROM - Respiratory Respiratory effort: normal Respiratory: bilateral: CTA - Cardiovascular Heart Sounds: Present: S1 & S2. Absent: rub, click - Extremities Extremities: pulses symmetrical, No edema Peripheral Pulses: within normal limits - Abdominal General gastrointestinal: Present: soft, non-tender, non-distended, normal bowel sounds - Integumentary Integumentary: Present: clear, warm, dry - Musculoskeletal Musculoskeletal: gait normal, strength equal bilaterally - Psychiatric Psychiatric: appropriate mood/affect, intact judgment & insight - Neurologic Neurologic: CNII-XII intact, moves all extremities Plan Activity: advance as tolerated Weight Bearing Status: Weight Bear as Tolerated Diet: low fat, low salt, diabetic Additional Instructions: f/u with neurology outpt Follow up with: PRIMARY CARE, [Referring] - 3-5 Days ELDA YU MD [Staff Physician] - 7 Days Forms: Discharge Signature Page, Work/School Release Form Prescriptions: Cyclobenzaprine HCl [Flexeril 5 MG TAB] 5 mg PO TID #15 tab
--- NOTE | 2019-03-19 15:36 | Progress Note ---
Assessment and Plan This is a 33 YO F with acute radiating pain down the right arm? cervical radiculpathy Can do MRI cervical spine if not done- pt thinks she had it already but I do not see it Can treat conservatively with rest, steroids, muscle relaxers and non narcotic analgesics at discharge Follow up with neurology outpatient. Subjective Date of service: 03/19/19 Interval history: No new complaints. Feels much better. Objective - Vital Sign Vital Signs - 12hr 03/19/19 03/19/19 03/19/19 03:38 03:45 04:00 Pulse Rate Pulse Rate [ Apical] Respiratory Rate Blood Pressure 165/86 167/94 165/92 O2 Sat by Pulse Oximetry 03/19/19 03/19/19 03/19/19 04:15 04:30 06:37 Pulse Rate Pulse Rate [ Apical] Respiratory 18 Rate Blood Pressure 155/88 143/84 O2 Sat by Pulse Oximetry 03/19/19 03/19/19 03/19/19 07:37 08:39 08:50 Pulse Rate 93 H Pulse Rate [ 88 Apical] Respiratory 18 22 Rate Blood Pressure O2 Sat by Pulse 98 Oximetry - General Apperance Constitutional: comfortable - EENT EENT: mucous membranes moist - Respiratory Respiratory: lungs clear, normal breath sounds - Cardiovascular Cardiovascular: regular rate - Gastrointestinal Gastrointestinal: normoactive bowel sounds - Neurologic Cranial nerve examination: PERRL, EOMI, V1/V2/V3 grossly intact, face symmetric, tongue midline Motor examination - right side: 5/5: biceps, triceps, wrist flexion, wrist extension, biological sciences professor, hip flexors, knee extensors, dorsiflexion, toe extension (EHL), plantarflexion Motor examination - left side: 5/5: biceps, triceps, wrist flexion, wrist extension, biological sciences professor, hip flexors, knee extensors, dorsiflexion, toe extension (EHL), plantarflexion - Laboratory Findings CBC and BMP: 03/19/19 05:24 03/19/19 05:24 Abnormal Lab Findings: Abnormal Labs 03/18/19 03/18/19 03/18/19 15:12 15:42 15:47 RBC 5.08 H MCV 74 L MCH 23 L RDW 17.9 H Lymph % (Auto) 39.5 H Eos % (Auto) 5.8 H Eos # 0.6 H Creatinine Glucose POC Glucose 109 H 108 H Hemoglobin A1c Iron ALT Albumin HDL Cholesterol 03/18/19 03/18/19 03/19/19 15:47 15:47 05:24 RBC MCV 73 L MCH 23 L RDW 18.2 H Lymph % (Auto) 44.8 H Eos % (Auto) 7.2 H Eos # 0.5 H Creatinine 0.6 L Glucose 105 H POC Glucose Hemoglobin A1c 6.3 H Iron ALT Albumin HDL Cholesterol 03/19/19 03/19/19 05:24 05:42 RBC MCV MCH RDW Lymph % (Auto) Eos % (Auto) Eos # Creatinine 0.6 L Glucose 114 H POC Glucose Hemoglobin A1c Iron 30 L ALT < 5 L Albumin 3.5 L HDL Cholesterol 37 L - Diagnostic Findings Additional findings: MRI Brain nothing acute
[2019-03-19] MEDS ORDERED: INSULIN LISPRO 100 UNIT/ML SUB-Q SCH (16:30)
[2019-03-19] MEDS ORDERED: metFORMIN 500 MG TAB PO SCH (17:00)
[2019-03-19] MEDS ORDERED: PRAVASTATIN 40 MG TAB PO SCH (22:00)
== END 2019-03-19 16:56 | disposition home or self-care (01) ==
LOC: ED 14:58 → INTOOBSV 19:37 → 4A 19:37
PROVIDERS: ADMIT Internal Medicine; ATTEND Internal Medicine
DX: G45.9 Transient cerebral ischemic attack, unspecified (principal); I63.9 Cerebral infarction, unspecified; R07.89 Other chest pain; J45.909 Unspecified asthma, uncomplicated; E66.01 Morbid (severe) obesity due to excess calories; Z68.42 Body mass index [BMI] 45.0-49.9, adult; Z98.891 History of uterine scar from previous surgery; Z98.890 Other specified postprocedural states
CPT/HCPCS: 36415; 70450; 70496; 70498; 70551; 71275; 80048; 80053; 80061; 82607; 82747; 82962; 83036; 83550; 84484; 84703; 85025; 85610; 85670; 85730; 93005; 93010; 93306; 93880; 97161; 97165; 99291; G0378; Q9967; J1644